=== PATIENT | female | born 1985 | race Caucasian/White ===

== ENCOUNTER 2022-03-10 13:12 | Outpatient (CLI) | payer BC, SELFPAY ==
[2022-03-10 17:39] LABS: Cholesterol* 169 mg/dL (90-199); HDL Cholesterol* 75 mg/dL (>=50); LDL Cholesterol Calculated 66 mg/dL (<100); Triglycerides* 141 mg/dL (40-149)
== END 2022-03-10 13:13 | disposition home or self-care (01) ==
PROVIDERS: PCP Family Medicine; Visit Provider Family Medicine
DX: E04.1 Nontoxic single thyroid nodule (principal); Z13.6 Encounter for screening for cardiovascular disorders; F41.9 Anxiety disorder, unspecified
CPT/HCPCS: 80061; 84443

== ENCOUNTER 2022-03-18 10:58 | Outpatient (CLI) | payer BC, SELFPAY ==
--- NOTE | 2022-03-18 11:15 | CRLHL7_ITS ---
For Patients: As a result of the Century Cures Act, medical imaging exams and procedure reports are released immediately into your electronic medical record. You may view this report before your referring provider. If you have questions, please contact your health care provider. Clinical information: Thyroid nodule. Comparison: Prior thyroid ultrasound from 2021. Procedure: The risks, benefits, and alternatives of the procedure were discussed with the patient. Verbal and written informed consent was obtained. Time-out was performed to confirm the correct patient, procedure, and site. The TR4 thyroid nodule at the left aspect of the isthmus was identified with ultrasound. A suitable skin site was identified and marked. The patient was prepped and draped in usual sterile fashion. Lidocaine 1% was used for local anesthesia. Under continuous ultrasound guidance 25 gauge needles were passed through the nodule multiple times using capillary action. Syringes were passed a pathology colleague. Patient tolerated the procedure well and there were no immediate complications. Impression: Successful ultrasound-guided thyroid nodule FNA. Dictated by Chavez Tamayo MD @ 03/18/2022 1:51:47 PM (Electronically Signed)
== END 2022-03-18 10:59 | disposition home or self-care (01) ==
PROVIDERS: PCP Family Medicine; Visit Provider Family Medicine
DX: E04.1 Nontoxic single thyroid nodule (principal)
CPT/HCPCS: 10005; 76942

== ENCOUNTER 2025-05-23 09:52 | Outpatient (CLI) | payer BC, SELFPAY ==
--- NOTE | 2025-05-23 10:15 | CRLHL7_ITS ---
For Patients: As a result of the Century Cures Act, medical imaging exams and procedure reports are released immediately into your electronic medical record. You may view this report before your referring provider. If you have questions, please contact your health care provider. INDICATION: BILATERAL SCREENING MAMMOGRAM, ASYMPTOMATIC 39 Y/O FEMALE COMPARISON: BASELINE TECHNIQUE: Digital mammogram in CC and MLO projections including computer-aided detection (CAD) and tomosynthesis. BREAST COMPOSITION: The breasts are heterogeneously dense, which may obscure small masses. FINDINGS: No suspicious findings. ASSESSMENT: BI-RADS 1 Negative RECOMMENDATION: Annual screening mammogram. A lay language report of this examination will be provided to the patient. Dictated by: Brandon Duenas MD @ 05/23/2025 11:30:15 (Electronically Signed)
== END 2025-05-23 09:53 | disposition home or self-care (01) ==
LOC: MAMMO 09:52
PROVIDERS: PCP Family Medicine; Visit Provider Family Medicine
DX: Z12.31 Encounter for screening mammogram for malignant neoplasm of breast (principal); R92.333 Mammographic heterogeneous density, bilateral breasts
CPT/HCPCS: 77063; 77067